=== PATIENT | female | born 1955 | race Caucasian/White ===

== ENCOUNTER 2018-01-24 06:54 | Outpatient (CLI) | payer OTHER ==
--- NOTE | 2018-01-24 08:54 | ULT ---
THYROID ULTRASOUND: Date: 12/26/17 COMPARISON: None. HISTORY: Evaluate thyroid nodule seen on prior screening examination. No comparison imaging is available. TECHNIQUE: Multiplanar Beaulieu scale sonographic imaging of the thyroid gland provided. FINDINGS: Thyroid isthmus measures 4.0 mm in AP dimension. Right lobe measures 4.2 x 1.3 x 1.6 cm. Left lobe measures 4.0 x 1.5 x 1.3 cm. There are two tiny nodules identified within the right lobe, including a 2-3 mm cyst superiorly, and a 3.0 mm solid nodule inferiorly. Two additional tiny hypoechoic nodules are noted on the left, one in the medial mid lobe and one in t he superior aspect of the left lobe, measuring in the 3-4 mm range. There is a complex, heterogeneously hypoechoic, dominant nodule in the left lobe measuring 1.3 x 1.6 x 1.0 cm. This dominant nodule is heterogeneously hypoechoic and demonstrates mild internal blood rony w along its medial margin. IMPRESSION: Dominant, heterogeneously hypoechoic, possibly solid, left nodule measuring up to 1.6 cm. Recommend f ine needle aspiration. POS: [facility]
== END 2018-01-24 06:55 | disposition home or self-care (01) ==
LOC: SCSULT 06:54
DX: E04.1 Nontoxic single thyroid nodule (principal)
CPT/HCPCS: 76536

== ENCOUNTER 2018-06-03 10:46 | Emergency (ER) | payer OTHER ==
--- NOTE | 2018-06-03 11:49 | CT ---
NONCONTRAST CT HEAD: Date: 06-03-18 History: Trauma. Patient slipped on wet floor falling backwards and hitting back of head. Pain to pos terior scalp. Comparison: None available. FINDINGS: There is no evidence of an intraparenchymal or extraaxial hemorrhage. There is no evidence of an acut e infarction, mass effect, or midline shift. Ventricular system is normal in size, shape, and positio n. There is scalp soft tissue swelling in the posterior parietal region related to scalp hematoma. Un derlying calvarial structures are intact. No displaced calvarial fracture is seen. Minimal mucosal thickening is seen in each maxillary antrum. The visualized mastoid air cells are magdalena ar. IMPRESSION: 1. No acute intracranial abnormalities demonstrated. 2. Posterior parietal scalp hematoma without underlying fracture visualized. POS: [facility]
== END 2018-06-03 11:40 | disposition home or self-care (01) ==
LOC: SCSER 10:46
DX: S09.90XA Unspecified injury of head, initial encounter (principal); E78.5 Hyperlipidemia, unspecified; M81.0 Age-related osteoporosis without current pathological fracture; Z79.899 Other long term (current) drug therapy; W01.198A Fall on same level from slipping, tripping and stumbling with subsequent striking against other object, initial encounter
CPT/HCPCS: 70450